=== PATIENT | male | born 1960 | race Caucasian/White ===

== ENCOUNTER 2017-02-13 09:18 | Outpatient (CLI) | payer OTHER ==
[2017-02-13 09:36] LABS: EOSINOPHILS % 4.3 % (0.0-6.8); MEAN CORPUSCULAR HEMOGLOBIN 28.5 pg (28.0-34.0); MEAN CORPUSCULAR VOLUME 85.6 fl (80.0-100.0); MONOCYTES % 4.8 % (0.0-11.0)
[2017-02-13 10:08] LABS: eGFR (African) > 60; eGFR (Non-African) > 60
== END 2017-02-13 10:03 ==
LOC: LAB 09:18
PROVIDERS: ATTEND Family Medicine
DX: Z00.00 Encounter for general adult medical examination without abnormal findings (principal); Z12.5 Encounter for screening for malignant neoplasm of prostate; R25.2 Cramp and spasm; Z01.818 Encounter for other preprocedural examination
CPT/HCPCS: 36415; 80053; 80061; 83735; 85025; 85610; 85730; G0103

== ENCOUNTER 2017-03-24 10:07 | Outpatient (CLI) | payer OTHER ==
[2017-03-24 11:05] LABS: eGFR (African) > 60; eGFR (Non-African) > 60
== END 2017-03-24 10:10 ==
LOC: LAB 10:07
PROVIDERS: ATTEND Family Medicine
DX: I10 Essential (primary) hypertension (principal)
CPT/HCPCS: 36415; 80048

== ENCOUNTER 2017-05-01 10:01 | Outpatient (CLI) | payer OTHER | END 2017-05-01 10:03 | LOC: LAB 10:01 | PROVIDERS: ATTEND Family Medicine | DX: H53.2 Diplopia (principal) | CPT/HCPCS: 36415; 83036; 84443 ==